=== PATIENT | female | born 1950 | race Caucasian/White ===

== ENCOUNTER 2017-05-09 09:56 | Outpatient (CLI) | payer MEDICARE, OTHER ==
[2017-05-09 13:01] LABS: BASOPHILS # (AUTO) 0.1 10^3/uL (0.0-0.1); BASOPHILS % (AUTO) 0.8 %; EOSINOPHILS # (AUTO) 0.1 10^3/uL (0.0-0.7); EOSINOPHILS % (AUTO) 1.6 %; HCT - HEMATOCRIT 41.5 % (37.0-47.0); HGB - HEMOGLOBIN 14.1 g/dL (12.0-16.0); LYMPHOCYTES # (AUTO) 2.1 10^3/uL (1.5-3.5); LYMPHOCYTES % (AUTO) 33.2 %; MEAN CORPUSCULAR HEMOGLOBIN 30.2 pg (27.0-31.0); MEAN CORPUSCULAR HGB CONC 34.1 g/dL (32.0-36.0); MEAN CORPUSCULAR VOLUME 88.7 fL (81.0-99.0); MEAN PLATELET VOLUME 7.4 fL (7.9-10.8); MONOCYTES # (AUTO) 0.7 10^3/uL (0.0-1.0); MONOCYTES % (AUTO) 11.8 %; NEUTROPHILS # (AUTO) 3.3 10^3/uL (1.5-6.6); NEUTROPHILS % (AUTO) 52.6 %; RED BLOOD COUNT 4.68 10^6/uL (4.20-5.40); RED CELL DISTRIBUTION WIDTH 13.4 % (12.0-15.0); UNCORRECTED WHITE BLOOD COUNT 6.3 x10^3/uL; WHITE BLOOD COUNT 6.3 x10^3/uL (4.8-10.8)
[2017-05-09 13:19] LABS: ALBUMIN/GLOBULIN RATIO 1.2 (1.0-2.2); BILIRUBIN,TOTAL 0.7 mg/dL (0.2-1.0); BUN - BLOOD UREA NITROGEN 15 mg/dL (6-20); CALCIUM 9.5 mg/dL (8.5-10.3); CARBON DIOXIDE - CO2 23 mmol/L (21-32); CHLORIDE 103 mmol/L (101-111); CREATININE 0.6 mg/dL (0.4-1.0); GFR - MDRD 100 (>89); GLUCOSE 107 mg/dL (70-100); POTASSIUM 3.9 mmol/L (3.5-5.0); SODIUM 136 mmol/L (135-145); TOTAL PROTEIN 7.8 g/dL (6.7-8.2)
[2017-05-10 07:25] LABS: CHOL/HDL RATIO 3.4 (<4.4); CHOLESTEROL 208 mg/dL; HDL CHOLESTEROL 61 mg/dL; LDL/HDL RATIO 2.1 (<4.4); TRIGLYCERIDES 98 mg/dL; VLDL CHOLESTEROL 20 mg/dL
== END 2017-05-09 09:57 | disposition home or self-care (01) ==
LOC: LAB.WCP 09:56
PROVIDERS: ATTEND Family Medicine
DX: R10.2 Pelvic and perineal pain (principal); E78.5 Hyperlipidemia, unspecified
CPT/HCPCS: 36415; 80053; 80061; 85025; 86140; 86304

== ENCOUNTER 2017-05-17 07:27 | Outpatient (CLI) | payer MEDICARE, OTHER ==
--- NOTE | 2017-05-17 12:07 | Ultrasound Report ---
PELVIC ULTRASOUND: 05/17/2017 CLINICAL INDICATION: A 67-year-old, pelvic pain, history of hysterectomy. TECHNIQUE: Transabdominal pelvic ultrasound performed for global evaluation. Transvaginal pelvic ultr asound performed for detailed evaluation. Real-time scanning performed and static images obtained. FINDINGS: The uterus is surgically absent. The left ovary was not confidently identified on transabd ominal or transvaginal imaging. The right ovary measures 2.2 x 1.5 x 1.0 cm, and appears unremarkable . No free fluid or adnexal mass is appreciated. IMPRESSION: CHANGES OF HYSTERECTOMY. NORMAL RIGHT OVARY. NONVISUALIZATION OF THE LEFT OVARY, BUT NO ADNEXAL MASS IS SEEN. JOB #: [id number] EXT JOB #:[id number]
== END 2017-05-17 07:28 | disposition home or self-care (01) ==
LOC: DI 07:27
PROVIDERS: ATTEND Family Medicine
DX: R10.2 Pelvic and perineal pain (principal)
CPT/HCPCS: 76830; 76856

== ENCOUNTER 2017-09-20 15:00 | Outpatient (CLI) | payer MEDICARE, OTHER ==
[2017-09-21 13:16] LABS: TEST RESULT REPORT
== END 2017-09-20 15:01 | disposition home or self-care (01) ==
LOC: LAB.R 15:00
PROVIDERS: ATTEND Family Medicine
DX: R19.7 Diarrhea, unspecified (principal)
CPT/HCPCS: 81599; 83630; 87045; 87046; 87177; 87209; 87329; 87493

== ENCOUNTER 2019-05-21 08:00 | Outpatient (CLI) | payer MEDICARE, OTHER ==
[2019-05-21 12:39] LABS: BASOPHILS % (AUTO) 0.5 %; EOSINOPHILS % (AUTO) 0.7 %; HGB - HEMOGLOBIN 14.9 g/dL (12.0-16.0); LYMPHOCYTES # (AUTO) 2.2 10^3/uL (1.5-3.5); LYMPHOCYTES % (AUTO) 36.7 %; MEAN CORPUSCULAR HEMOGLOBIN 31.3 pg (27.0-31.0); MEAN CORPUSCULAR VOLUME 94.7 fL (81.0-99.0); MEAN PLATELET VOLUME 9.3 fL (7.9-10.8); MONOCYTES # (AUTO) 1.1 10^3/uL (0.0-1.0); MONOCYTES % (AUTO) 18.2 %; NEUTROPHILS # (AUTO) 2.6 10^3/uL (1.5-6.6); NEUTROPHILS % (AUTO) 43.1 %; PLT - PLATELET COUNT 325 10^3/uL (130-450); RED BLOOD COUNT 4.76 10^6/uL (4.20-5.40); RED CELL DISTRIBUTION WIDTH 13.3 % (12.0-15.0); WHITE BLOOD COUNT 5.9 x10^3/uL (4.8-10.8)
[2019-05-21 13:23] LABS: BILIRUBIN,TOTAL 0.7 mg/dL (0.2-1.0); CALCIUM 9.2 mg/dL (8.5-10.3); CREATININE 0.6 mg/dL (0.4-1.0); TOTAL PROTEIN 7.9 g/dL (6.7-8.2)
== END 2019-05-21 23:59 | disposition home or self-care (01) ==
LOC: LAB.WCP 08:00
PROVIDERS: ATTEND Family Medicine
DX: R19.7 Diarrhea, unspecified (principal); G25.81 Restless legs syndrome
CPT/HCPCS: 36415; 80053; 82728; 85025

== ENCOUNTER 2019-07-03 09:36 | Day surgery (SDC) | payer MEDICARE, OTHER ==
[2019-07-03] MEDS ORDERED: MIDAZOLAM 2 MG/2 ML VIAL IVP ONE (09:37)
[2019-07-03] MEDS ORDERED: fentaNYL 250 MCG/5 ML VIAL IVP ONE (09:37)
[2019-07-03] MEDS ORDERED: LACTATED RINGERS 1,000 ML IV ONE (09:44)
[2019-07-03 12:10] VITALS: BP 118/84
== END 2019-07-03 09:37 | disposition home or self-care (01) ==
LOC: SDS 09:36
PROVIDERS: ATTEND Surgery
PROC: 0DBF8ZX Excision of Right Large Intestine, Via Natural or Artificial Opening Endoscopic, Diagnostic (ICD-10-PCS; principal; 2019-07-03 11:15)
DX: K52.832 Lymphocytic colitis (principal); K57.30 Diverticulosis of large intestine without perforation or abscess without bleeding; K21.9 Gastro-esophageal reflux disease without esophagitis; E78.5 Hyperlipidemia, unspecified; F32.9 Major depressive disorder, single episode, unspecified; F41.0 Panic disorder [episodic paroxysmal anxiety]; M81.0 Age-related osteoporosis without current pathological fracture; Z87.11 Personal history of peptic ulcer disease; Z87.891 Personal history of nicotine dependence
CPT/HCPCS: 45380; 83630; 87015; 87177; 87209; 87272; 87329; 87493; J3010; J7120

== ENCOUNTER 2020-08-10 19:41 | Outpatient (CLI) | payer MEDICARE, OTHER | END 2020-08-10 19:42 | disposition home or self-care (01) | LOC: COV 19:41 | PROVIDERS: ATTEND Family Medicine | DX: U07.1 COVID-19 (principal) ==

== ENCOUNTER 2021-03-10 09:22 | Outpatient (CLI) | payer MEDICARE, OTHER ==
--- NOTE | 2021-03-15 15:25 | DEXA Report ---
PROCEDURE: Dexa Spine and/or Hip INDICATIONS: OSTEOPOROSIS TECHNIQUE: Dual energy x-ray absorptiometry (DXA) was performed on a GVISP 1 System. Regions measur ed are the AP Spine, femoral neck, and if needed forearm. COMPARISON: None. FINDINGS: Lumbar Spine: Bone Mineral Density 1.007 g/cm/cm,T score -1.4, osteopenia Left Hip: Bone Mineral Density 0.948 g/cm/cm,T score -0.5, normal Left Femoral Neck: Bone Mineral Density 0.949 g/cm/cm, T score -0.6, normal (T score greater or equal to -1.0: NORMAL) (T score from -1.1 to -2.4: OSTEOPENIA) (T score less than or equal to -2.5 to: OSTEOPOROSIS) Impression: Osteopenia. Patients with diagnosis of osteoporosis or osteopenia should have regular bone mineral density assess ment. For those eligible for Medicare, routine testing is allowed once every 2 years. Testing frequ ency can be increased for patients who have rapidly progressing disease or for those who are receivin g medical therapy to restore bone mass. Reviewed by: Kandice Fallon MD, PhD on 03/10/2021 5:09 PM PDT Approved by: Kandice Fallon MD, PhD on 03/10/2021 5:09 PM PDT Station ID: [id number]
== END 2021-03-10 09:23 | disposition home or self-care (01) ==
LOC: DI 09:22
PROVIDERS: ATTEND Family Medicine
DX: M85.88 Other specified disorders of bone density and structure, other site (principal)

== ENCOUNTER 2021-03-10 09:23 | Outpatient (CLI) | payer MEDICARE, OTHER ==
--- NOTE | 2021-03-11 13:41 | Mammography Report ---
BILATERAL DIGITAL SCREENING MAMMOGRAM 3D/2D: 03/10/2021 CLINICAL: Routine screening. Comparison is made to exam dated: 09/22/2014 mammogram - [facility]. The tissue of paxton th breasts is predominantly fatty. No significant masses, calcifications, or other findings are seen in either breast. IMPRESSION: NEGATIVE There is no mammographic evidence of malignancy. A 1 year screening mammogram is recommended. This exam was interpreted at Station ID: [id number]. NOTE: For mammograms, a report in lay terms will be sent to the patient. Approximately 15% of breast malignancies will not be visualized mammographically. In the management of a palpable breast mass, a negative mammogram must not discourage biopsy of a clinically suspicious lesion. Electronically Signed By: Rodrigo Condon acr/penrad:03/10/2021 16:52:09 ACR BI-RADS Category 1: Negative 3341F PARENCHYMAL PATTERN: (F) - The breast(s) demonstrate(s) diffuse fatty replacement. BI-RADS CATEGORY: (1) - 1 RECOMMENDATION: (ANNUAL) - Recommend routine annual screening mammography. [id number] 1 year screening LATERALITY: (B)
== END 2021-03-10 09:24 | disposition home or self-care (01) ==
LOC: DI 09:23
DX: Z12.31 Encounter for screening mammogram for malignant neoplasm of breast (principal)

== ENCOUNTER 2021-03-19 09:27 | Outpatient (CLI) | payer MEDICARE, OTHER ==
[2021-03-19 10:01] LABS: BASOPHILS % (AUTO) 0.6 %; EOSINOPHILS # (AUTO) 0.1 10^3/uL (0.0-0.7); EOSINOPHILS % (AUTO) 1.8 %; HCT - HEMATOCRIT 43.4 % (37.0-47.0); HGB - HEMOGLOBIN 14.7 g/dL (12.0-16.0); LYMPHOCYTES # (AUTO) 1.7 10^3/uL (1.5-3.5); LYMPHOCYTES % (AUTO) 34.9 %; MEAN CORPUSCULAR HEMOGLOBIN 31.3 pg (27.0-31.0); MEAN CORPUSCULAR HGB CONC 33.9 g/dL (32.0-36.0); MEAN CORPUSCULAR VOLUME 92.3 fL (81.0-99.0); MEAN PLATELET VOLUME 8.7 fL (7.9-10.8); MONOCYTES # (AUTO) 0.7 10^3/uL (0.0-1.0); MONOCYTES % (AUTO) 13.1 %; NEUTROPHILS # (AUTO) 2.4 10^3/uL (1.5-6.6); NEUTROPHILS % (AUTO) 49.2 %; PLT - PLATELET COUNT 263 10^3/uL (130-450); RED CELL DISTRIBUTION WIDTH 13.3 % (12.0-15.0)
[2021-03-19 10:19] LABS: ALBUMIN 4.3 g/dL (3.2-5.5); ALKALINE PHOSPHATASE 94 IU/L (42-121); ALT ALANINE AMINOTRANSFERASE 114 IU/L (10-60); AST ASPARTATE AMINOTRANSFERASE 82 IU/L (10-42); BILIRUBIN,TOTAL 0.7 mg/dL (0.2-1.0); BUN - BLOOD UREA NITROGEN 19 mg/dL (6-20); CALCIUM 9.9 mg/dL (8.5-10.3); CARBON DIOXIDE - CO2 24 mmol/L (21-32); CHLORIDE 100 mmol/L (101-111); CHOL/HDL RATIO 3.1 (<4.4); CHOLESTEROL 221 mg/dL; CREATININE 0.6 mg/dL (0.4-1.0); GFR - MDRD 99 (>89); GLUCOSE 109 mg/dL (70-100); HDL CHOLESTEROL 71 mg/dL; LDL CHOLESTEROL,CALCULATED 133 mg/dL; LDL/HDL RATIO 1.9 (<4.4); POTASSIUM 3.9 mmol/L (3.5-5.0); SODIUM 134 mmol/L (135-145); TOTAL PROTEIN 8.4 g/dL (6.7-8.2); TRIGLYCERIDES 83 mg/dL; VLDL CHOLESTEROL 17 mg/dL
== END 2021-03-19 09:28 | disposition home or self-care (01) ==
LOC: LAB 09:27
PROVIDERS: ATTEND Family Medicine
DX: E78.5 Hyperlipidemia, unspecified (principal); G25.81 Restless legs syndrome
CPT/HCPCS: 36415; 80053; 80061; 82728; 83721; 85025

== ENCOUNTER 2022-09-02 05:37 | Emergency (ER) | payer OTHER, MEDICARE ==
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
[2022-09-02] MEDS ORDERED: KETOROLAC 30 MG/ML VIAL IM STA (06:32)
[2022-09-02 07:43] VITALS: BP 136/97
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
== END 2022-09-02 07:43 | disposition home or self-care (01) ==
LOC: ED 05:37
DX: S16.1XXA Strain of muscle, fascia and tendon at neck level, initial encounter (principal); S20.212A Contusion of left front wall of thorax, initial encounter; V43.52XA Car driver injured in collision with other type car in traffic accident, initial encounter; G44.89 Other headache syndrome
CPT/HCPCS: 96372; 99284

== ENCOUNTER 2023-04-13 08:00 | Outpatient (CLI) | payer MEDICARE, OTHER ==
[2023-04-13 19:26] LABS: SARS-CoV-2 -RESP PCR PANEL DETECTED
[2023-04-13 19:27] LABS: INFLUENZA A- RESP PCR PANEL NOT DETECTED; INFLUENZA B - RESP PCR PANEL NOT DETECTED; RSV- RESP PCR PANEL NOT DETECTED
== END 2023-04-13 08:01 | disposition home or self-care (01) ==
LOC: LAB.N 08:00
PROVIDERS: ATTEND Physician Assistant Medical
DX: U07.1 COVID-19 (principal)
CPT/HCPCS: 87637

== ENCOUNTER 2023-04-18 10:45 | Outpatient (CLI) | payer MEDICARE, OTHER ==
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
== END 2023-04-18 10:46 | disposition home or self-care (01) ==
LOC: DI 10:45
PROVIDERS: ATTEND Nurse Practitioner Family
DX: M17.11 Unilateral primary osteoarthritis, right knee (principal)

== ENCOUNTER 2023-04-26 09:06 | Emergency (ER) | payer MEDICARE, OTHER ==
--- NOTE | 2023-04-26 10:06 | ED Physician Documentation ---
History of Present Illness - Stated complaint Stated Complaint: LT FINGER SWELLING,NUMBNESS - Chief complaint Chief Complaint: Trauma Ext - Additonal information Additional information: 73-year-old female presenting to the emergency department with left middle ringFinger bruising and numbness. Symptoms ongoing x2 days. No history of trauma. Does report that she spends a great deal of time gardening. Uncertain if she "got bit"Denies fever, chills, chest pain, shortness of breath. 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 Cardiovascular: Other HEENT: Cataracts - Present Medications Home Medications: Ambulatory Orders Medication Instructions Recorded Confirmed Cyclobenzaprine [Flexeril] 10 mg PO TID PRN #20 tablet 09/02/22 HYDROcod/ACETAM 5/325 [[place] 5/325] 1 - 2 tablet PO Q6H PRN #14 tablet 09/02/22 lisinopriL [Lisinopril] 15 DAILY 09/02/22 - Allergies Allergies/Adverse Reactions: Allergies Allergy/AdvReac Type Severity Reaction Status Date / Time No Known Drug Allergies Allergy Verified 04/26/23 09:14 - Social History Does the pt smoke?: No Smoking Status: Never smoker Does the pt drink ETOH?: No Does the pt have substance abuse?: No - Immunizations Immunizations are current?: Yes - POLST Patient has POLST: No PD ED PE NORMAL - General General: Alert and oriented X 3 - Respiratory Respiratory: No respiratory distress - Extremities Extremities: Other (Prominent ecchymosis to the middle and distal phalanx of the left third finger. Pulse oximetry on this finger is 100%. Normal capillary refill. No erythema, rubor, fluctuance) Results - Vitals Vitals: Vital Signs - 24 hr 04/26/23 09:11 Temperature 36.4 C L Heart Rate 85 Respiratory 16 Rate Blood Pressure 144/100 H O2 Saturation 97 Oxygen O2 Source Room air PD Medical Decision Making - ED course Complexity details: reviewed results, re-evaluated patient, d/w patient ED course: Patient 73-year-old female presenting with left middle finger swelling. No known history of trauma. Does report that she gardens a great deal. Is not on blood thinners. Reported some numbness but not significant pain. Afebrile, hemodynamically stable. Pulse oximetry on the affected digit was 100% with clear and easy waveform. Normal capillary refill. X-rays negative for acute fracture.Nothing in the patient's presentation is suggestive of inflammation or infection. She otherwise has an appropriate range of motion and there is no pain or indications of tendinopathy or tenosynovitis. No identifiable foreign body on x-ray or physical exam. Will discharge at this time for follow-up with primary care. In the meantime will recommend symptomatic management with ibuprofen/acetaminophen and ice packs as needed. Clear return precautions given. Departure - Departure Disposition: 01 Home, Self Care Clinical Impression: Finger swelling Comments: Thank you for allowing us to care for you today would be general. The x-rays taken today did not show any fracture or foreign body to your finger. Otherwise your finger appears quite well perfused. I do not have a clear e xplanation for why you have this discoloration and bruising however I do not see anything that looks dangerous at this time. I do recommend regular ice packs, Tylenol as needed. I like you to follow-up carefully with your primary care doctor for recheck in the next few days. If it anytime your symptoms worsen or if you develop signs or symptoms concerning for infection such as increased swelling, redness, heat or increasing pain and tenderness please return to the emergency department immediately for reevaluation.
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
[2023-04-26 10:25] VITALS: BP 130/90
== END 2023-04-26 10:19 | disposition home or self-care (01) ==
LOC: ED 09:06
DX: R22.32 Localized swelling, mass and lump, left upper limb (principal)
CPT/HCPCS: 99283

== ENCOUNTER 2023-09-04 09:24 | Outpatient (CLI) | payer MEDICARE, OTHER ==
[2023-09-04 09:58] LABS: BASOPHILS # (AUTO) 0.1 10^3/uL (0.0-0.1); BASOPHILS % (AUTO) 0.9 %; EOSINOPHILS # (AUTO) 0.2 10^3/uL (0.0-0.7); EOSINOPHILS % (AUTO) 2.9 %; HCT - HEMATOCRIT 43.9 % (37.0-47.0); HGB - HEMOGLOBIN 14.7 g/dL (12.0-16.0); LYMPHOCYTES # (AUTO) 1.9 10^3/uL (1.5-3.5); MEAN CORPUSCULAR HEMOGLOBIN 30.4 pg (27.0-31.0); MEAN CORPUSCULAR HGB CONC 33.5 g/dL (32.0-36.0); MEAN CORPUSCULAR VOLUME 90.7 fL (81.0-99.0); MEAN PLATELET VOLUME 8.6 fL (7.9-10.8); MONOCYTES # (AUTO) 0.7 10^3/uL (0.0-1.0); MONOCYTES % (AUTO) 12.8 %; NEUTROPHILS # (AUTO) 2.6 10^3/uL (1.5-6.6); NEUTROPHILS % (AUTO) 47.7 %; PLT - PLATELET COUNT 279 10^3/uL (130-450); RED BLOOD COUNT 4.84 10^6/uL (4.20-5.40); RED CELL DISTRIBUTION WIDTH 13.2 % (12.0-15.0); WHITE BLOOD COUNT 5.5 x10^3/uL (4.8-10.8)
[2023-09-04 10:27] LABS: ALBUMIN 4.4 g/dL (3.2-5.5); ALBUMIN/GLOBULIN RATIO 1.3 (1.0-2.2); ALKALINE PHOSPHATASE 91 IU/L (42-121); ALT ALANINE AMINOTRANSFERASE 46 IU/L (10-60); AST ASPARTATE AMINOTRANSFERASE 36 IU/L (10-42); BILIRUBIN,TOTAL 0.6 mg/dL (0.2-1.0); BUN - BLOOD UREA NITROGEN 20 mg/dL (6-20); CALCIUM 10.2 mg/dL (8.5-10.3); CARBON DIOXIDE - CO2 27 mmol/L (21-32); CHLORIDE 102 mmol/L (101-111); CHOL/HDL RATIO 3.1 (<4.4); CHOLESTEROL 190 mg/dL; CREATININE 0.6 mg/dL (0.6-1.3); GFR - MDRD 98 (>89); GLUCOSE 100 mg/dL (74-104); HDL CHOLESTEROL 61 mg/dL; LDL CHOLESTEROL,CALCULATED 106 mg/dL; LDL/HDL RATIO 1.7 (<4.4); POTASSIUM 4.2 mmol/L (3.5-4.5); SODIUM 135 mmol/L (135-145); TOTAL PROTEIN 7.8 g/dL (6.4-8.9); TRIGLYCERIDES 117 mg/dL (48-352); VLDL CHOLESTEROL 23 mg/dL
[2023-09-04 11:02] LABS: THYROID STIMULATING HORMONE 1.46 uIU/mL (0.34-5.60)
[2023-09-04 13:01] LABS: ESTIMATED AVERAGE GLUCOSE 103 mg/dL (70-100); HEMOGLOBIN A1c% 5.2 % (4.27-6.07)
== END 2023-09-04 09:25 | disposition home or self-care (01) ==
LOC: LAB 09:24
PROVIDERS: ATTEND Nurse Practitioner Family
DX: I10 Essential (primary) hypertension (principal); E66.9 Obesity, unspecified; E78.5 Hyperlipidemia, unspecified
CPT/HCPCS: 36415; 80053; 80061; 83036; 83721; 84443; 85025

== ENCOUNTER 2023-09-22 08:45 | Outpatient (CLI) | payer MEDICARE, OTHER ==
[2023-09-22 08:46] LABS: BILIRUBIN,URINE NEGATIVE (NEGATIVE); GLUCOSE, URINE (UA) NEGATIVE (NEGATIVE); KETONES,URINE (UA) NEGATIVE (NEGATIVE); LEUKOCYTE ESTERASE, URINE TRACE (NEGATIVE); NITRITE,URINE NEGATIVE (NEGATIVE); OCCULT BLOOD,URINE NEGATIVE (NEGATIVE); PROTEIN,URINE NEGATIVE (NEGATIVE); UROBILINOGEN,URINE 0.2 (NORMAL) E.U./dL (NORMAL)
[2023-09-22 08:51] LABS: PT - PROTHROMBIN TIME 10.8 secs (9.9-12.6)
[2023-09-22 08:56] LABS: BACTERIA,URINE Rare /HPF (None Seen); CLARITY,URINE CLEAR (CLEAR); RBC,URINE None Seen /HPF (0-5); SQUAMOUS EPITHELIAL CELL,UR RARE Squamous (<= Few); WBC CLUMPS,URINE PRESENT
[2023-09-22 09:19] LABS: FERRITIN 85.1 ng/mL (11.0-306.8)
--- NOTE | 2023-09-22 17:11 | MRI Report ---
PROCEDURE: UPPER ARM/HUMERUS WO - RT INDICATIONS: RIGHT ARM PAIN TECHNIQUE: Noncontrast coronal and sagittal T1 spin echo and STIR; axial T1 spin echo and T2 fast spin echo with fat saturation through the right upper arm.. COMPARISON: None. FINDINGS: Image quality: Excellent. Bones: There is mild to moderate acromioclavicular joint osteoarthritis. No marrow edema. No fracture or dislocation. No suspicious intraosseous lesion. Osteoarthritic changes also seen in elbow joints without elbow fracture or dislocation. Soft tissues: Limited evaluation of right shoulder joint shows full-thickness rupture of distal supra spinatus at its insertion on humeral head with up to 2.6 cm medial retraction of torn tendon fibers t o the level of acromion. Moderate grade articular surface partial-thickness involving distal infraspi natus is seen. Low-grade intrasubstance partial thickness tear involving distal subscapularis is also noted. Proximal long head of biceps tendinosis is also seen. No gross muscle or tendon signal abnorm ality is seen in mid to distal upper arm. IMPRESSION: 1. Right shoulder joint and elbow joint osteoarthritis. No acute fracture or dislocation is seen in t he included portion of right upper extremity. No suspicious bony lesions. No marrow edema. 2. Suggestion of full-thickness rupture involving distal supraspinatus at its insertion on humeral he ad with up to 2.6 cm medial retraction of torn tendon fibers to the level of acromion. Moderate grade articular surface partial-thickness involving distal infraspinatus. Low-grade intrasubstance partial thickness tear involving distal subscapularis. 3. Proximal long head of biceps tendinosis. No full-thickness tendon rupture. Fluid distending bicipi bernadine tendon sheath extending to mid humeral level. 4. No muscle or tendon signal abnormality is seen in mid to distal upper arm. No soft tissue mass or drainable fluid collection. Reviewed by: Shan Cortez MD on 09/22/2023 5:10 PM PST Approved by: Shan Cortez MD on 09/22/2023 5:10 PM PST Station ID: [id number]
== END 2023-09-22 08:46 | disposition home or self-care (01) ==
LOC: DI 08:45
PROVIDERS: ATTEND Nurse Practitioner Family
DX: Z01.818 Encounter for other preprocedural examination (principal); M25.561 Pain in right knee; M19.011 Primary osteoarthritis, right shoulder; M19.021 Primary osteoarthritis, right elbow; M75.111 Incomplete rotator cuff tear or rupture of right shoulder, not specified as traumatic; M75.81 Other shoulder lesions, right shoulder
CPT/HCPCS: 36415; 81001; 82728; 83540; 84466; 85610; 87086

== ENCOUNTER 2023-12-18 11:15 | Outpatient (CLI) | payer MEDICARE, OTHER ==
--- NOTE | 2023-12-18 20:34 | XRAY Report ---
PROCEDURE: Shoulder 3 View RT INDICATIONS: RIGHT SHOULDER PAIN TECHNIQUE: 3 views of the shoulder were acquired. COMPARISON: None FINDINGS: Bones: No fractures or dislocations. No suspicious bony lesions. Visualized ribs appear intact. H ypertrophic acromioclavicular joint Soft tissues: No suspicious soft tissue calcifications. IMPRESSION: Acromioclavicular joint arthropathy Reviewed by: Pablito Berg MD on 12/18/2023 7:33 PM [facility] Approved by: Pablito Berg MD on 12/18/2023 7:33 PM [facility] Station ID: [id number]
== END 2023-12-18 23:59 | disposition home or self-care (01) ==
LOC: DI.WOS 11:15
PROVIDERS: ATTEND Orthopaedic Surgery
DX: M19.011 Primary osteoarthritis, right shoulder (principal)